=== PATIENT | female | born 1955 | race Two or more races ===

== ENCOUNTER 2019-07-05 23:31 | Emergency (ER) | payer MEDICARE ==
[~2019-07-05] VITALS: Ht 154.9 cm; Wt 68.2 kg
[2019-07-05] MEDS ORDERED: normal saline 1000ML IV soln IVB ONE (23:50)
[2019-07-06] MEDS ORDERED: iohexol 350MG/ML 100ml bottle IV ONE (00:08)
[2019-07-06 00:21] LABS: PARTIAL THROMBOPLASTIN TIME 29 SECONDS (22-32)
[2019-07-06 00:22] LABS: ALANINE AMINOTRANSFERASE 42 U/L (12-78); ALBUMIN 3.9 G/DL (3.4-5.0); ALBUMIN/GLOBULIN RATIO 0.9 (1.1-1.5); ALKALINE PHOSPHATASE 63 IU/L (46-116); ANION GAP 10 (8-16); ASPARTATE AMINO TRANSFERASE 35 U/L (10-37); BILIRUBIN,TOTAL 0.9 MG/DL (0.1-1.0); BLOOD UREA NITROGEN 16 MG/DL (7-18); BUN/CREATININE RATIO 17.8 (6.6-38.0); CALCIUM 9.3 MG/DL (8.5-10.1); CHLORIDE 107 MMOL/L (99-107); GLUCOSE 150 MG/DL (70-104); POTASSIUM 3.6 MMOL/L (3.5-5.1); SODIUM 142 MMOL/L (135-145); TOTAL CARBON DIOXIDE 24.6 MMOL/L (24-32); TOTAL PROTEIN 8.2 G/DL (6.4-8.2); eGFR 63 ML/MIN
[2019-07-06 00:25] LABS: BASOPHILS # (AUTO) 0.1 X10'3 (0-0.2); EOSINOPHILS # (AUTO) 0.2 X10'3 (0-0.9); LYMPHOCYTES # (AUTO) 1.9 X10'3 (1.1-4.8); MONOCYTES # (AUTO) 0.6 X10'3 (0-0.9); PLATELET COUNT 177 X10'3 (140-440); RED CELL DISTRIBUTION WIDTH 12.5 % (11.5-14.5); WHITE BLOOD COUNT 6.8 X10'3 (4.5-11.0)
[2019-07-06 00:27] LABS: EOSINOPHILS % (AUTO) 2.9 % (0-6); HEMATOCRIT 47.5 % (35.0-45.0); HEMOGLOBIN 16.6 g/dl (12.0-16.0); LYMPHOCYTES % (AUTO) 28.5 % (21-51); MEAN CORPUSCULAR HEMOGLOBIN 37.3 PG (27.0-31.0); MEAN CORPUSCULAR VOLUME 106.8 FL (78-98); MEAN PLATELET VOLUME 8.5 FL (7.4-10.4); NEUTROPHILS % (AUTO) 58.6 % (42-75); RED BLOOD COUNT 4.44 X10'6 (4.20-5.60)
[2019-07-06] MEDS ORDERED: AZIT-63 PO (01:33)
[2019-07-06] MEDS ORDERED: azithromycin 250mg tablet PO ONE (01:35)
[2019-07-06 02:31] VITALS: BP 151/78
== END 2019-07-06 02:33 | disposition home or self-care (01) ==
LOC: ER 23:33
DX: R04.2 Hemoptysis (principal); R50.9 Fever, unspecified; E11.9 Type 2 diabetes mellitus without complications; Z79.82 Long term (current) use of aspirin; F17.200 Nicotine dependence, unspecified, uncomplicated; Z79.2 Long term (current) use of antibiotics
CPT/HCPCS: 36415; 71275; 80053; 84145; 85025; 85610; 85730; 86870; 86885; 86900; 86901; 87040; 99285; J7030; Q9967; 83605; 93005

== ENCOUNTER 2021-03-28 11:36 | Emergency (ER) | payer MEDICARE ==
[~2021-03-28] VITALS: Ht 154.9 cm; Wt 68.1 kg
[2021-03-28 12:08] VITALS: BP 142/73
[2021-03-28 15:07] LABS: BASOPHILS # (AUTO) 0.1 X10'3 (0-0.2); BASOPHILS % (AUTO) 1.2 % (0-1); EOSINOPHILS # (AUTO) 0.3 X10'3 (0-0.9); EOSINOPHILS % (AUTO) 4.4 % (0-6); HEMATOCRIT 43.4 % (35.0-45.0); LYMPHOCYTES # (AUTO) 1.3 X10'3 (1.1-4.8); MEAN CORPUSCULAR HEMOGLOBIN 36.6 PG (27.0-31.0); MEAN CORPUSCULAR HGB CONC 34.7 g/dL (33.0-36.5); MEAN CORPUSCULAR VOLUME 105.5 FL (78-98); MEAN PLATELET VOLUME 8.8 FL (7.4-10.4); MONOCYTES % (AUTO) 12.8 % (2-12); NEUTROPHILS % (AUTO) 64.6 % (42-75); PLATELET COUNT 174 X10'3 (140-440); RED BLOOD COUNT 4.11 X10'6 (4.20-5.60); RED CELL DISTRIBUTION WIDTH 12.6 % (11.5-14.5); WHITE BLOOD COUNT 7.7 X10'3 (4.5-11.0)
[2021-03-28 15:16] LABS: ALANINE AMINOTRANSFERASE 23 U/L (12-78); ALBUMIN 3.5 G/DL (3.4-5.0); ALBUMIN/GLOBULIN RATIO 0.8 (1.1-1.5); ALKALINE PHOSPHATASE 96 IU/L (46-116); ANION GAP 11 (8-16); ASPARTATE AMINO TRANSFERASE 26 U/L (10-37); BILIRUBIN,TOTAL 0.7 MG/DL (0.1-1.0); BLOOD UREA NITROGEN 12 MG/DL (7-18); BUN/CREATININE RATIO 14.6 (6.6-38.0); CALCIUM 9.6 MG/DL (8.5-10.1); CHLORIDE 106 MMOL/L (99-107); CREATININE 0.82 MG/DL (0.40-0.90); GLUCOSE 130 MG/DL (70-104); SODIUM 141 MMOL/L (135-145); TOTAL CARBON DIOXIDE 24.4 MMOL/L (24-32); eGFR 69 ML/MIN
[2021-03-28 15:17] LABS: D-DIMER 0.33 MG/L FEU (0-0.50)
[2021-03-28] MEDS ORDERED: potassium Cl 20 mEq SR tablet PO ONE (15:50)
[2021-03-28] MEDS ORDERED: iohexol 350MG/ML 100ml bottle IV ONE (16:27)
[2021-03-28] MEDS ORDERED: MESSAGE TO NURSING PO ONE (18:45)
[2021-03-28] MEDS ORDERED: BENZ-38 PO (19:17)
[2021-03-28] MEDS ORDERED: GUAI400T92 PO (19:17)
[2021-03-28] MEDS ORDERED: POTA-192 PO (19:19)
[2021-03-28] MEDS ORDERED: ketorolac trometh. 30mg/ml inj. IV ONE (19:20)
== END 2021-03-28 19:50 | disposition home or self-care (01) ==
LOC: ER 11:37
DX: J20.9 Acute bronchitis, unspecified (principal); Z20.822 Contact with and (suspected) exposure to COVID-19; M54.9 Dorsalgia, unspecified; E87.6 Hypokalemia; E11.9 Type 2 diabetes mellitus without complications; Z79.899 Other long term (current) drug therapy; F17.200 Nicotine dependence, unspecified, uncomplicated; Z72.89 Other problems related to lifestyle
CPT/HCPCS: 36415; 71045; 71275; 80053; 84484; 85025; 85379; 87635; 93005; 96374; 99285; C9803; J1885; Q9967

== ENCOUNTER 2021-09-06 12:25 | Emergency (ER) | payer OTHER, MEDICARE ==
[~2021-09-06] VITALS: Ht 154.9 cm; Wt 68.2 kg
[~2021-09-06 12:25] MED LIST: GUAI400T92 PO
[2021-09-06 12:40] VITALS: BP 142/67
[2021-09-06 13:10] LABS: BASOPHILS # (AUTO) 0.1 X10'3 (0-0.2); BASOPHILS % (AUTO) 1.2 % (0-1); EOSINOPHILS # (AUTO) 0.2 X10'3 (0-0.9); EOSINOPHILS % (AUTO) 3.4 % (0-6); HEMATOCRIT 46.6 % (35.0-45.0); HEMOGLOBIN 16.4 g/dl (12.0-16.0); LYMPHOCYTES # (AUTO) 1.9 X10'3 (1.1-4.8); MEAN CORPUSCULAR HEMOGLOBIN 35.3 PG (27.0-31.0); MEAN CORPUSCULAR HGB CONC 35.2 g/dL (33.0-36.5); MEAN CORPUSCULAR VOLUME 100.3 FL (78-98); MEAN PLATELET VOLUME 8.7 FL (7.4-10.4); MONOCYTES % (AUTO) 13.4 % (2-12); PLATELET COUNT 168 X10'3 (140-440); RED BLOOD COUNT 4.64 X10'6 (4.20-5.60); RED CELL DISTRIBUTION WIDTH 12.8 % (11.5-14.5); WHITE BLOOD COUNT 7.1 X10'3 (4.5-11.0)
[2021-09-06 13:20] LABS: ALANINE AMINOTRANSFERASE 42 U/L (12-78); ALBUMIN 3.8 G/DL (3.4-5.0); ALBUMIN/GLOBULIN RATIO 0.8 (1.1-1.5); ALKALINE PHOSPHATASE 78 IU/L (46-116); ANION GAP 11 (8-16); ASPARTATE AMINO TRANSFERASE 51 U/L (10-37); BILIRUBIN,TOTAL 0.9 MG/DL (0.1-1.0); BLOOD UREA NITROGEN 16 MG/DL (7-18); BUN/CREATININE RATIO 16.5 (6.6-38.0); CALCIUM 9.8 MG/DL (8.5-10.1); CHLORIDE 101 MMOL/L (99-107); CREATININE 0.97 MG/DL (0.40-0.90); GLUCOSE 139 MG/DL (70-104); SODIUM 140 MMOL/L (135-145); TOTAL CARBON DIOXIDE 28.5 MMOL/L (24-32); TOTAL PROTEIN 8.5 G/DL (6.4-8.2); eGFR 57 ML/MIN
[2021-09-06 13:24] LABS: POTASSIUM 2.6 MMOL/L (3.5-5.1)
--- NOTE | 2021-09-06 19:02 | NUR ---
not in lobby. second call
[2021-09-07] MEDS ORDERED: POTA-188 PO (17:52)
== END 2021-09-06 19:48 | disposition left against medical advice (07) ==
LOC: ER 12:25
DX: Z02.89 Encounter for other administrative examinations (principal); Z53.21 Procedure and treatment not carried out due to patient leaving prior to being seen by health care provider
CPT/HCPCS: 36415; 80053; 85025

== ENCOUNTER 2021-09-07 13:51 | Emergency (ER) | payer OTHER, MEDICARE ==
[~2021-09-07] VITALS: Ht 154.9 cm; Wt 68.2 kg
[2021-09-07 15:04] LABS: BASOPHILS # (AUTO) 0.1 X10'3 (0-0.2); BASOPHILS % (AUTO) 1.1 % (0-1); EOSINOPHILS # (AUTO) 0.2 X10'3 (0-0.9); EOSINOPHILS % (AUTO) 3.2 % (0-6); HEMATOCRIT 46.1 % (35.0-45.0); HEMOGLOBIN 16.3 g/dl (12.0-16.0); LYMPHOCYTES # (AUTO) 1.1 X10'3 (1.1-4.8); LYMPHOCYTES % (AUTO) 17.4 % (21-51); MEAN CORPUSCULAR HEMOGLOBIN 35.3 PG (27.0-31.0); MEAN CORPUSCULAR HGB CONC 35.4 g/dL (33.0-36.5); MEAN CORPUSCULAR VOLUME 99.6 FL (78-98); MEAN PLATELET VOLUME 9.2 FL (7.4-10.4); MONOCYTES # (AUTO) 0.7 X10'3 (0-0.9); MONOCYTES % (AUTO) 10.7 % (2-12); NEUTROPHILS # (AUTO) 4.3 X10'3 (1.8-7.7); NEUTROPHILS % (AUTO) 67.6 % (42-75); PLATELET COUNT 164 X10'3 (140-440); RED BLOOD COUNT 4.63 X10'6 (4.20-5.60); RED CELL DISTRIBUTION WIDTH 12.8 % (11.5-14.5); WHITE BLOOD COUNT 6.4 X10'3 (4.5-11.0)
[2021-09-07 15:19] LABS: ALANINE AMINOTRANSFERASE 45 U/L (12-78); ALBUMIN 3.8 G/DL (3.4-5.0); ALBUMIN/GLOBULIN RATIO 0.8 (1.1-1.5); ALKALINE PHOSPHATASE 75 IU/L (46-116); ANION GAP 11 (8-16); ASPARTATE AMINO TRANSFERASE 71 U/L (10-37); BLOOD UREA NITROGEN 15 MG/DL (7-18); CALCIUM 9.5 MG/DL (8.5-10.1); CHLORIDE 98 MMOL/L (99-107); CREATININE 0.94 MG/DL (0.40-0.90); GLUCOSE 220 MG/DL (70-104); SODIUM 138 MMOL/L (135-145); TOTAL CARBON DIOXIDE 28.8 MMOL/L (24-32); TOTAL PROTEIN 8.5 G/DL (6.4-8.2); eGFR 59 ML/MIN
[2021-09-07 15:29] LABS: POTASSIUM 2.5 MMOL/L (3.5-5.1)
[2021-09-07] MEDS ORDERED: potassium Cl 10 mEq/100mL bag IV ONE (16:25)
[2021-09-07] MEDS ORDERED: magnesium 2GM in 50ml NS 50 ML IV ONE (16:25)
[2021-09-07] MEDS ORDERED: potassium Cl 20 mEq SR tablet PO ONE (16:25)
[2021-09-07 16:49] LABS: MAGNESIUM 2.3 MG/DL (1.5-2.4)
[2021-09-07] MEDS ORDERED: POTA-188 PO (17:52)
[2021-09-07 18:06] VITALS: BP 132/69
== END 2021-09-07 18:07 | disposition home or self-care (01) ==
LOC: ER 13:51
DX: E87.6 Hypokalemia (principal); E11.9 Type 2 diabetes mellitus without complications; Z79.899 Other long term (current) drug therapy
CPT/HCPCS: 36415; 80053; 83735; 84484; 85025; 93005; 96365; 96366; 96368; 99284; J3475; J3480

== ENCOUNTER 2021-09-20 15:21 | Emergency (ER) | payer OTHER, MEDICARE ==
[~2021-09-20] VITALS: Ht 154.9 cm; Wt 68.2 kg
[~2021-09-20 15:21] MED LIST changes: +POTA-188 PO
[2021-09-20] MEDS ORDERED: OXYC-658 PO ×2 (17:24→21:50)
[2021-09-20] MEDS ORDERED: ONDA4TAB12 PO ×2 (17:24→21:50)
[2021-09-20 20:18] VITALS: BP 118/60
[2021-09-20] MEDS ORDERED: oxyCODONE IR 5mg (immed. release) tablet PO ONE (20:30)
== END 2021-09-20 22:19 | disposition home or self-care (01) ==
LOC: ER 15:22
DX: S42.414A Nondisplaced simple supracondylar fracture without intercondylar fracture of right humerus, initial encounter for closed fracture (principal); E11.9 Type 2 diabetes mellitus without complications; Z79.899 Other long term (current) drug therapy; W01.0XXA Fall on same level from slipping, tripping and stumbling without subsequent striking against object, initial encounter; Y93.89 Activity, other specified; Y92.89 Other specified places as the place of occurrence of the external cause; Y99.8 Other external cause status
CPT/HCPCS: 73030; 73080; 99284; A4565